=== PATIENT | male | born 1960 | race Caucasian/White ===

== ENCOUNTER 2019-03-10 10:23 | Observation (INO) ==
--- NOTE | 2019-03-10 10:59 | Emergency Department Note ---
Disposition Clinical Impression: Premature atrial complexes Disposition: Still a Patient General Adult HPI - General Chief complaint: ED Shortness of Breath/Dyspnea Stated complaint: AFIB again Time Seen by Provider: 03/10/19 10:38 Source: patient, family Limitations: no limitations Nursing Notes Reviewed: Yes Vital Signs Reviewed: Yes - History of Present Illness HPI Narrative: Attestation note: Patient was seen with the emergency medicine resident/nurse practitioner/physician mechanic's assistant/transitional resident/medical student: Dr. Trenton Tobar I have personally performed a face to face evaluation on this patient. I have reviewed and agree with history and physical examination patient management and disposition. Briefly the salient points of the case are as follows: 4-year-old male history of atrial fibrillation presents with "I am in A. fib again". On physical examination and with EKG patient apparently is in a sinus rhythm at 82 bpm with occasional atrial premature complexes no acute ischemic changes are noted ischemic changes when compared to prior EKG dated 02/13/2019. Patient was on a beta wong which helped him with the symptoms but his primary care physician Otis this medication for reasons that are unknown to the patient. Patient is afebrile with stable vital signs patient will undergo ED workup including chest x-ray and screening labs. Disposition pending Pain Scale: 0 - Related Data Home Medications Medication Instructions Recorded Confirmed Acetaminophen [Tylenol] 1,000 mg PO Q6HR PRN 02/07/19 02/07/19 Multivitamin [Daily Multiple 1 tab PO DAILY 02/07/19 02/07/19 Vitamin] Previous Rx's Medication Instructions Recorded Insulin DETEMIR [Levemir] 10 unit SQ HS #60 mls NS 02/13/19 Insulin Regular Human [Humulin R] 100 unit IJ ACHS #30 mls NS 02/13/19 Metoprolol [Lopressor] 125 mg PO BID #60 tablet 02/13/19 Miscellaneous Medical Supply 1 each MC DAILY #60 miscell 02/13/19 [Attachment Set] Simvastatin [Zocor] 80 mg PO DAILY 30 Days #30 tablet 02/13/19 NS Warfarin [Coumadin] 7.5 mg PO 1800 #30 tablet 02/13/19 dilTIAZem HCl [Diltiazem 24Hr Cd] 360 mg PO DAILY #30 cap.er.24h 02/13/19 Allergies Allergy/AdvReac Type Severity Reaction Status Date / Time No Known Allergies Allergy Verified 02/07/19 20:51 Past Medical History - Past Medical History Medical history: Reports: atrial fibrillation, hypertension Psychiatric history: Reports: no psych history - Social History Smoking Status: Never smoker Smokeless Tobacco Status: No Alcohol use: Reports: none Drug use: Reports: none Physical Exam - General Limitations: no limitations General appearance: alert, in no apparent distress Course Vital Signs Temperature 98.7 F 03/10/19 10:34 Pulse Rate 74 03/10/19 10:34 Respiratory Rate 18 03/10/19 10:34 Blood Pressure 161/82 03/10/19 10:34 O2 Sat by Pulse Oximetry 94 03/10/19 10:34 Temperature 98.8 F 03/10/19 10:45 Pulse Rate 77 03/10/19 10:45 Respiratory Rate 18 03/10/19 10:45 Blood Pressure 157/100 03/10/19 10:45 O2 Sat by Pulse Oximetry 96 03/10/19 10:45 Oxygen Delivery Oxygen Delivery Room Air
[2019-03-10 11:09] LABS: Basophils % 0.5 %; Eosinophils # 0.1 K/mcL (0.0-0.6); Eosinophils % 2.1 %; Hematocrit 45.2 % (37.5-50.1); Hemoglobin 15.3 g/dL (12.9-16.9); Immature Granulocytes % 0.3 % (0-4); Lymphocytes # 1.6 K/mcL (0.6-4.6); Lymphocytes % 25.6 %; Mean Corpuscular HGB Conc 33.8 g/dL (31.6-35.5); Mean Corpuscular Hemoglobin 29.7 pg (28.0-33.3); Mean Corpuscular Volume 87.8 fL (83.0-100.0); Mean Platelet Volume 10.3 fL (9.4-12.4); Monocytes # 0.5 K/mcL (0.0-1.3); Monocytes % 8.3 %; Neutrophils # 3.9 K/mcL (1.6-8.9); Platelet Count 189 K/mcL (140-400); Red Blood Count 5.15 M/mcL (4.19-5.50); Red Cell Distribution Width 12.8 % (11.5-14.5); Segmented Neutrophils % 63.2 %
[2019-03-10 11:24] LABS: Blood Urea Nitrogen 12 mg/dL (8-23); Calcium 9.3 mg/dL (8.6-10.3); Carbon Dioxide 26 mEq/L (23-29); Chloride 104 mEq/L (98-107); Glucose 196 mg/dL (70-105); Osmolality,Calculated 295 (280-300); Potassium 3.6 mEq/L (3.5-5.1); Sodium 140 mEq/L (136-145)
--- NOTE | 2019-03-10 11:24 | Emergency Department Note ---
Disposition Clinical Impression: Premature atrial complexes Pneumonia Qualifiers: Pneumonia type: due to unspecified organism Laterality: left Lung location: lower lobe of lung Qualified Code(s): J18.1 - Lobar pneumonia, unspecified organism CHF exacerbation Qualifiers: Heart failure type: unspecified Qualified Code(s): I50.9 - Heart failure, unspecified Disposition: Admitted As Inpatient Condition: Good General Adult HPI - General Chief complaint: ED Shortness of Breath/Dyspnea Stated complaint: AFIB again Time Seen by Provider: 03/10/19 10:38 Source: patient, family Limitations: no limitations Nursing Notes Reviewed: Yes Vital Signs Reviewed: Yes - History of Present Illness HPI Narrative: 4-year-old male presents emergency department with concern for taking that he was in atrial fibrillation again. Patient's history of atrial fibrillation. He states that he was having some palpitations and increased heart rate last night. He does not know how fast his heart was going. He does report some cough. Pain Scale: 0 - Related Data Home Medications Medication Instructions Recorded Confirmed Acetaminophen [Tylenol] 1,000 mg PO Q6HR PRN 02/07/19 02/07/19 Multivitamin [Daily Multiple 1 tab PO DAILY 02/07/19 02/07/19 Vitamin] Previous Rx's Medication Instructions Recorded Insulin DETEMIR [Levemir] 10 unit SQ HS #60 mls NS 02/13/19 Insulin Regular Human [Humulin R] 100 unit IJ ACHS #30 mls NS 02/13/19 Metoprolol [Lopressor] 125 mg PO BID #60 tablet 02/13/19 Miscellaneous Medical Supply 1 each MC DAILY #60 miscell 02/13/19 [Attachment Set] Simvastatin [Zocor] 80 mg PO DAILY 30 Days #30 tablet 02/13/19 NS Warfarin [Coumadin] 7.5 mg PO 1800 #30 tablet 02/13/19 dilTIAZem HCl [Diltiazem 24Hr Cd] 360 mg PO DAILY #30 cap.er.24h 02/13/19 Allergies Allergy/AdvReac Type Severity Reaction Status Date / Time No Known Allergies Allergy Verified 02/07/19 20:51 All systems ED: reviewed and negative except as stated. Review of Systems: As Per HPI Constitutional: Denies: fever Cardiovascular: Reports: palpitations. Denies: chest pain Respiratory: Reports: cough, dyspnea Gastrointestinal: Denies: abdominal pain, nausea, vomiting Musculoskeletal: Denies: back pain Past Medical History - Past Medical History Attestation: Yes The following information was validated with the patient. Medical history: Reports: atrial fibrillation, hypertension Psychiatric history: Reports: no psych history - Social History Smoking Status: Never smoker Smokeless Tobacco Status: No Alcohol use: Reports: none Drug use: Reports: none Physical Exam - General Limitations: no limitations General appearance: alert, in no apparent distress - Head Head exam: normocephalic - Eye Eye exam: Present: EOMI - ENT ENT exam: mucous membranes moist - Neck Neck exam: Present: trachea midline - Chest Chest inspection: Present: normal inspection, symmetric chest wall rise - Respiratory Respiratory exam: Present: normal lung sounds bilaterally. Absent: respiratory distress - Cardiovascular Cardiovascular exam: Present: regular rate, normal rhythm, normal heart sounds - Abdominal Exam Abdominal exam: Present: soft, Non-Tender, distention. Absent: guarding, rebound, rigidity - Extremities Exam Extremities exam: Present: normal capillary refill - Neurological Exam Neurological exam: Present: alert, oriented X3 - Psychiatric Psychiatric exam: Present: normal affect, normal mood - Skin Skin exam: Present: warm, dry, intact, normal color Course Vital Signs Temperature 98.7 F 03/10/19 10:34 Pulse Rate 74 03/10/19 10:34 Respiratory Rate 18 03/10/19 10:34 Blood Pressure 161/82 03/10/19 10:34 O2 Sat by Pulse Oximetry 94 03/10/19 10:34 Temperature 98.8 F 03/10/19 10:45 Pulse Rate 74 03/10/19 11:36 Respiratory Rate 18 03/10/19 11:36 Blood Pressure 162/95 03/10/19 11:36 O2 Sat by Pulse Oximetry 97 03/10/19 11:36 Oxygen Delivery Oxygen Delivery Room Air Medical Decision Making - [facility] Narrative Medical decision making narrative: 58-year-old male presents emergency department with concern for shortness of breath, cough, palpitations. History of atrial fibrillation, but not currently in atrial ablation here in the emergency department. Sinus rhythm with occasional PACs. Initial troponin was negative. Chest x-ray revealed left lower lobe pneumonia versus pleural effusion. Patient with no white count, but is reporting some cough. He is afebrile here. We will treat patient as if he has pneumonia. Given him Rocephin and azithromycin. Also, given him a dose of Lasix. His BNP has become more elevated since last visit and he is having some increasing peripheral edema with shortness of breath on exertion as well as shortness of breath while lying flat. We will admit patient to hospitalist. Patient agreed with plan. Hospitalist Dr. Harrington agree to accept admission to address his pneumonia as well as possible worsening heart failure. - Lab Data Result diagrams: 03/10/19 10:52 03/10/19 10:52 Lab Results 03/10/19 03/10/19 03/10/19 Range/Units 10:52 10:52 10:52 WBC 6.1 (4.3-11.1) K/mcL RBC 5.15 (4.19-5.50) M/mcL Hgb 15.3 (12.9-16.9) g/dL Hct 45.2 (37.5-50.1) % MCV 87.8 (83.0-100.0) fL MCH 29.7 (28.0-33.3) pg MCHC 33.8 (31.6-35.5) g/dL RDW 12.8 (11.5-14.5) % Plt Count 189 (140-400) K/mcL MPV 10.3 (9.4-12.4) fL Immature Gran % 0.3 (0-4) % Seg Neutrophils % 63.2 % Lymphocytes % 25.6 % Monocytes % 8.3 % Eosinophils % 2.1 % Basophils % 0.5 % Neutrophils # 3.9 (1.6-8.9) K/mcL Lymphocytes # 1.6 (0.6-4.6) K/mcL Monocytes # 0.5 (0.0-1.3) K/mcL Eosinophils # 0.1 (0.0-0.6) K/mcL Basophils # 0.0 (0.0-0.2) K/mcL Sodium 140 (136-145) mEq/L Potassium 3.6 (3.5-5.1) mEq/L Chloride 104 (98-107) mEq/L Carbon Dioxide 26 (23-29) mEq/L BUN 12 (8-23) mg/dL Creatinine 0.95 (0.70-1.30) mg/dL Est GFR ( Amer) > 60 (> 60) Est GFR (Non-Af Amer) > 60 (> 60) BUN/Creatinine Ratio 13 (6-26) Glucose 196 H (70-105) mg/dL Calculated Osmolality 295 (280-300) Calcium 9.3 (8.6-10.3) mg/dL Troponin I < 0.03 (< 0.04) ng/mL B-Natriuretic Peptide 128 H (Less than 100) pg/mL - EKG Data EKG #1 EKG attestation: Yes I reviewed and interpreted this EKG. EKG results narrative: 10:44 Heart rate 82 bpm, DE interval 167 ms, QRS duration 104 ms, QT 366 ms, normal axis. Sinus rhythm with a ventricular rate of 80 bpm. There are occasional PACs here. Nonspecific ST changes in the septal and anterior leads from ECG obtained on February 13, 2019.
[2019-03-10 11:25] LABS: Troponin I < 0.03 ng/mL (< 0.04)
[2019-03-10 12:13] LABS: BUN/Creatinine Ratio 13 (6-26); eGFR For Non-African Americans > 60 (> 60)
[2019-03-10] MEDS ORDERED: Furosemide 40 MG/4 ML VIAL IVP ONE (12:16)
[2019-03-10] MEDS ORDERED: Azithromycin 500 MG in D5% in Water 250 ML IVPB ONE (12:17)
[2019-03-10] MEDS ORDERED: cefTRIAXone 1,000 MG in Water for inj. (sterile) 20 ML 10 ML IVP ONE (12:17)
[2019-03-10 14:29] LABS: INR 2.5; Prothrombin Time 27.8 Seconds (9.4-12.1)
[2019-03-10] MEDS ORDERED: Naloxone 0.4 MG/ML INJ IVP PRN (15:03)
--- NOTE | 2019-03-10 15:44 | Internal Med History&Physical ---
Date of Encounter: 03/10/19 Time of Encounter: 16:00 Internal Medicine - H&P: HPI Chief complaint: Shortness of breath Admitted From: Emergency Dept History of present illness: Mr. Mcintyre is a 58 year old male patient with a history of atrial fibrillation on anticoagulation with Coumadin presented to the ER with complaints of shortness of breath. Symptoms began earlier this morning. Patient noted that he was significantly dyspneic even with minimal exertion. He does have occasional lower extremity swelling and describes episodes of orthopnea. He is also been having cough with sputum production. Denies any fevers or chills. No nausea or vomiting. He was hospitalized last month when he was diagnosed with A. fib and was placed on metoprolol. He was evaluated by his strike off machine operator as outpatient 2 days back and was taken off metoprolol. He has been on Cardizem and was also placed on Lasix at his clinic appointment. Patient reports that he had a fluttery feeling in the chest last night. Past Med Surg Social Fam HX - Past Medical History Attestation: Yes The following information was validated with the patient. Source: patient Medical history: atrial fibrillation, hypertension Psychiatric history: no psych history - Past Surgical History Additional surgical history: Scope to knee, total right knee, 2 revisions to right knee - Social History Smoking Status: Never smoker Smokeless Tobacco Status: No Alcohol use: none Drug use: none - Family History Mother Living Status: Hx Family Cardiac Disorders: Yes (Kidney failure) Father Living Status: Still Living Hx Family Cardiac Disorders: Yes (HTN, blood clots, HLD, DVT) Hx Family Endocrine Disorder: Yes (DM) Brother Living Status: Hx Family Cardiac Disorders: Yes (CVA, blood clots, DVT) Internal Medicine - H&P: Meds Diltiazem CD (24hr) [Cardizem CD] 360 mg PO DAILY 03/10/19 [History] Furosemide [Lasix] 20 mg PO DAILY 03/10/19 [History] Insulin Glargine [Lantus] 10 unit SQ HS 03/10/19 [History] Insulin Regular Human [Humulin R] 0 unit SQ QIDAC 03/10/19 [History] Lisinopril [Zestril] 5 mg PO DAILY 03/10/19 [History] Metoclopramide [Reglan] 10 mg PO BID 03/10/19 [History] Metoprolol Tartrate 100 mg PO BID 03/10/19 [History] Metoprolol [Lopressor] 25 mg PO BID 03/10/19 [History] Rosuvastatin Calcium 20 mg PO HS 03/10/19 [History] Warfarin Sodium 3.75 mg PO SUTUTHFR 03/10/19 [History] Warfarin Sodium 7.5 mg PO MOWESA 03/10/19 [History] Allergy/AdvReac Type Severity Reaction Status Date / Time No Known Allergies Allergy Verified 02/07/19 20:51 All Systems PM: A 10-system review of systems was performed and is negative for pertinent findings except as documented above in the HPI. - Constitutional Constitutional: no chills, no fever(s), no night sweats - EENT Eyes: no change in vision, no discharge, no pain, no photophobia Ears: no ear discharge, no ear pain, no tinnitus Nose, mouth and throat: no dysphagia, no nasal discharge, no neck pain, no sore throat - Cardiovascular Cardiovascular ROS IM: dyspnea on exertion, palpitations, no chest pain, no diap horesis, no dyspnea, no lightheadedness, no syncope - Respiratory Respiratory: cough, dyspnea, excessive phlegm production, no wheezing - Gastrointestinal Gastrointestinal: no abdominal pain, no diarrhea, no hematemesis, no hematochezia, no melena, no nausea, no vomiting - Musculoskeletal Musculoskeletal ROS IM: no numbness, no tingling - Integumentary Integumentary IM: no rash, no unusual bruising - Neurological Neurological ROS: no confusion, no convulsions, no focal weakness, no numbness, no tingling, no tremor(s) - Hematologic/Lymphatic Hematologic/Lymphatic: no easy bruising - Constitutional Vitals: Temp Pulse Resp BP Pulse Ox 98.5 F 73 16 143/92 94 03/10/19 14:23 03/10/19 14:23 03/10/19 14:23 03/10/19 14:23 03/10/19 14:23 General appearance: Present: cooperative, A&O X 3, pleasant, answers questions appropriately Exam: General: Patient is alert, no acute distress, oriented x 3 Head: atraumatic, normocephalic, ENT: Mucous membranes moist Eye: normal appearance, PERRL, no scleral icterus, no conjunctival injection Neck: normal inspection, trachea midline, full ROM, no carotid bruits Chest: normal inspection, symmetric chest rise Respiratory: Normal breath sounds bilaterally. Cardiovascular: Irregularly irregular rhythm s1 and s2 normal No clicks, rubs, gallops, or murmurs. No pedal edema Abdomen: Abdomen is soft, nontender. Bowel sounds are present Musculoskeletal: Spontaneously moving all extremities Skin: warm, dry, intact. Neuro: Alert oriented x 3 normal cranial nerves, no focal deficits Psych: Patient's affect is normal Internal Med - H&P Results - Labs CBC & Chem 7: 03/10/19 10:52 03/10/19 10:52 Labs: Short CBC 03/10/19 Range/Units 10:52 WBC 6.1 (4.3-11.1) K/mcL Hgb 15.3 (12.9-16.9) g/dL Hct 45.2 (37.5-50.1) % Plt Count 189 (140-400) K/mcL Neutrophils # 3.9 (1.6-8.9) K/mcL BMP 03/10/19 10:52 Sodium 140 Potassium 3.6 Chloride 104 Carbon Dioxide 26 BUN 12 Creatinine 0.95 Glucose 196 H Calcium 9.3 Cardiac Enzymes 03/10/19 Range/Units 10:52 Troponin I < 0.03 (< 0.04) ng/mL - Impressions ITS Impressions Chest X-Ray 03/10/19 10:47 IMPRESSION: 1. New left basilar consolidation and left pleural effusion as well as subsegmental atelectasis lingula left upper lobe. Pneumonia is a consideration. 2. Findings of mild pulmonary venous hypertension which may simply be related to physiologic redistribution. No overt congestive heart failure change evident. 3. Cardiomegaly. D/ / James Plummer / James Plummer Interpreting Provider: James Plummer - Assessment and Plan (1) Pneumonia Current Visit: Yes Status: Suspected Assessment and plan: Chest x-ray concerning for pneumonia. We will treat with IV antibiotics. Monitor vital signs closely. Check MRSA screen. Follow blood cultures. We will also send sputum for culture. Check pneumococcal and Legionella antigens. Moderate risk for complications. Qualifiers: Pneumonia type: due to Pneumococcus Laterality: left Lung location: lower lobe of lung Qualified Code(s): J13 - Pneumonia due to Streptococcus pneumoniae (2) Paroxysmal A-fib Current Visit: Yes Status: Acute Assessment and plan: Paroxysmal atrial fibrillation. EKG shows sinus rhythm but on my examination he had irregularly irregular rhythm. Continue Cardizem. On Coumadin for anticoagulation. (3) Hypertension Current Visit: Yes Status: Chronic Qualifiers: Hypertension type: essential hypertension Qualified Code(s): I10 - Essential (primary) hypertension (4) Congestive heart failure Current Visit: Yes Status: Acute Assessment and plan: Patient reporting symptoms of exertional dyspnea and pedal edema and orthopnea. BNP slightly elevated at 128. Continue Lasix. Echocardiogram done last month showed EF of 50%. Monitor input and output. Qualifiers: Heart failure type: diastolic Heart failure chronicity: acute on chronic Qualified Code(s): I50.33 - Acute on chronic diastolic (congestive) heart failure (5) Diabetes mellitus, type 2 Current Visit: Yes Status: Chronic Assessment and plan: Monitor blood sugars. Sliding scale insulin. A1c was 9.2% during last hospitalization here 1 month back. Qualifiers: Diabetes mellitus superintendent container terminal insulin use: without superintendent container terminal use Diabetes mellitus complication status: with hyperglycemia Qualified Code(s): E11.65 - Type 2 diabetes mellitus with hyperglycemia - Time Spent With Patient Total time spent is greater than 50% in coordination of care (as documented) at patient's floor/unit and/or counseling patient:
[2019-03-10] MEDS ORDERED: D5% in Water 1,000 ML IVC PRN (16:26)
[2019-03-10] MEDS ORDERED: Dextrose Gel 15 GM/37.5 ML TUBE PO PRN ×2 (16:26)
[2019-03-10] MEDS ORDERED: *HR* Dextrose 50 % in Water (Syg) 50 ML SYRINGE IVP PRN (16:26)
[2019-03-10] MEDS ORDERED: Warfarin perPT PO PRN (18:00)
[2019-03-10] MEDS: Insulin LISPRO 300 UNITS/3 ML VIAL SQ SCH (18:18)
[2019-03-10] MEDS ORDERED: *HR* Warfarin 7.5 MG TABLET PO ONE (18:30)
[2019-03-10] MEDS ORDERED: Insulin LISPRO 300 UNITS/3 ML VIAL SQ SCH (21:00)
[2019-03-11 03:49] LABS: Basophils # 0.1 K/mcL (0.0-0.2); Basophils % 0.7 %; Eosinophils # 0.2 K/mcL (0.0-0.6); Eosinophils % 3.1 %; Hematocrit 44.8 % (37.5-50.1); Hemoglobin 15.1 g/dL (12.9-16.9); Immature Granulocytes % 0.3 % (0-4); Lymphocytes # 2.1 K/mcL (0.6-4.6); Lymphocytes % 30.7 %; Mean Corpuscular HGB Conc 33.7 g/dL (31.6-35.5); Mean Corpuscular Hemoglobin 29.5 pg (28.0-33.3); Mean Corpuscular Volume 87.5 fL (83.0-100.0); Mean Platelet Volume 10.5 fL (9.4-12.4); Monocytes # 0.6 K/mcL (0.0-1.3); Monocytes % 8.7 %; Neutrophils # 3.8 K/mcL (1.6-8.9); Platelet Count 179 K/mcL (140-400); Red Blood Count 5.12 M/mcL (4.19-5.50); Segmented Neutrophils % 56.5 %
[2019-03-11 03:58] LABS: INR 2.4; Prothrombin Time 27.4 Seconds (9.4-12.1)
[2019-03-11 04:10] LABS: BUN/Creatinine Ratio 12 (6-26); Blood Urea Nitrogen 11 mg/dL (8-23); Carbon Dioxide 26 mEq/L (23-29); Chloride 105 mEq/L (98-107); Glucose 167 mg/dL (70-105); Osmolality,Calculated 293 (280-300); Potassium 3.1 mEq/L (3.5-5.1); Sodium 140 mEq/L (136-145); eGFR For Non-African Americans > 60 (> 60)
[2019-03-11 08:00] VITALS: BP 148/83
[2019-03-11] MEDS ORDERED: Furosemide 40 MG/4 ML VIAL IVP SCH (09:00)
[2019-03-11] MEDS ORDERED: Azithromycin 500 MG in D5% in Water 250 ML IVPB SCH (09:00)
[2019-03-11] MEDS ORDERED: cefTRIAXone 1,000 MG in Water for inj. (sterile) 20 ML 10 ML IVP SCH (09:00)
[2019-03-11] MEDS ORDERED: Diltiazem CD (24hr) 180 MG CAPSULE PO SCH (09:00)
[2019-03-11] MEDS: Insulin LISPRO 300 UNITS/3 ML VIAL SQ SCH (09:35)
--- NOTE | 2019-03-11 10:32 | Discharge Summary ---
- NOTES TO OUTPATIENT PROVIDER Notes to Outpatient Provider: Patient with a history of atrial fibrillation on anticoagulation, hypertension who presented to the ER here with complaints of shortness of breath. He was diagnosed with pneumonia and acute congestive heart failure. Was treated with IV antibiotics and also received IV Lasix. His symptoms have significantly improved much quicker than expected today and he is feeling a lot better. He is clinically stable to be discharged home on oral antibiotics and will continue to take Lasix at home. He is on Coumadin for anticoagulation and his INR is therapeutic. He is not requiring O2 supplementation. He will follow up with cardiology after discharge for further management of his atrial fibrillation and congestive heart failure. Orders not resulted at time of discharge: Pending orders 03/10/19 16:28 Culture,Sputum with Gram Stain [RM] Routine 03/12/19 04:00 PT/INR [Prothrombin Time INR] [COAG] AM 0400 03/13/19 04:00 PT/INR [Prothrombin Time INR] [COAG] AM 0400 03/14/19 04:00 PT/INR [Prothrombin Time INR] [COAG] AM 0400 Date of Encounter: 03/11/19 Time of Encounter: 10:29 - Discharge Diagnosis (1) Pneumonia Priority: Primary Status: Acute Qualifiers: Pneumonia type: due to unspecified organism Laterality: left Lung locatio n: lower lobe of lung Qualified Code(s): J18.1 - Lobar pneumonia, unspecified organism (2) Paroxysmal A-fib Priority: Secondary Status: Acute (3) Hypertension Priority: Secondary Status: Chronic Qualifiers: Hypertension type: essential hypertension Qualified Code(s): I10 - Essential (primary) hypertension (4) Congestive heart failure Priority: Secondary Status: Acute Qualifiers: Heart failure type: diastolic Heart failure chronicity: acute on chronic Qualified Code(s): I50.33 - Acute on chronic diastolic (congestive) heart failure (5) Diabetes mellitus, type 2 Priority: Secondary Status: Chronic Qualifiers: Diabetes mellitus long term care social worker insulin use: without nursing home use Diabetes me llitus complication status: with hyperglycemia Qualified Code(s): E11.65 - Type 2 diabetes mellitus with hyperglycemia Hospital course: Mr. Mcintyre is a 58 year old male Patient with a history of atrial fibrillation on anticoagulation, hypertension who presented to the ER here with complaints of shortness of breath. He was diagnosed with pneumonia and acute congestive heart failure. Was treated with IV antibiotics and also received IV Lasix. His symptoms have significantly improved much quicker than expected today and he is feeling a lot better. He is clinically stable to be discharged home on oral antibiotics and will continue to take Lasix at home. He is on Coumadin for anticoagulation and his INR is therapeutic. He is not requiring O2 supplementation. He will follow up with cardiology after discharge for further management of his atrial fibrillation and congestive heart failure. Discharge discussed with: patient - Time Spent with Patient Total time spent providing and/or coordinating discharge services: Time spent: Less than 30 minutes (25 min) - Discharge Medications Prescriptions: New Furosemide [Lasix] 40 mg PO DAILY #30 tablet Potassium Chloride 20 meq PO DAILY #30 tab.er.prt levoFLOXacin [Levaquin] 750 mg PO DAILY #5 tablet Continue Metoclopramide [Reglan] 10 mg PO BID Lisinopril [Zestril] 5 mg PO DAILY Rosuvastatin Calcium 20 mg PO HS Insulin Regular Human [Humulin R] 0 unit SQ QIDAC Insulin Glargine [Lantus] 10 unit SQ HS Diltiazem CD (24hr) [Cardizem CD] 360 mg PO DAILY Warfarin Sodium 7.5 mg PO MOWESA Warfarin Sodium 3.75 mg PO SUTUTHFR Discontinued Metoprolol [Lopressor] 25 mg PO BID Metoprolol Tartrate 100 mg PO BID Furosemide [Lasix] 20 mg PO DAILY Home Medications: Diltiazem CD (24hr) [Cardizem CD] 360 mg PO DAILY 03/10/19 [History] Insulin Glargine [Lantus] 10 unit SQ HS 03/10/19 [History] Insulin Regular Human [Humulin R] 0 unit SQ QIDAC 03/10/19 [History] Lisinopril [Zestril] 5 mg PO DAILY 03/10/19 [History] Metoclopramide [Reglan] 10 mg PO BID 03/10/19 [History] Rosuvastatin Calcium 20 mg PO HS 03/10/19 [History] Warfarin Sodium 3.75 mg PO SUTUTHFR 03/10/19 [History] Warfarin Sodium 7.5 mg PO MOWESA 03/10/19 [History] Furosemide [Lasix] 40 mg PO DAILY #30 tablet 04/20/19 [Rx] Potassium Chloride 20 meq PO DAILY #30 tab.er.prt 03/11/19 [Rx] levoFLOXacin [Levaquin] 750 mg PO DAILY #5 tablet 03/11/19 [Rx] Allergies/Adverse Reactions: Allergy/AdvReac Type Severity Reaction Status Date / Time No Known Allergies Allergy Verified 02/07/19 20:51 Date of admission: 03/10/19 13:05 Primary care physician: Sumit Pradhan Jr, MD Discharging clinician: Dahlia Sal Anticipated date of discharge: 03/11/19 - Constitutional Vitals: Temp Pulse Resp BP Pulse Ox 98 F 74 17 148/83 95 03/11/19 07:58 03/11/19 07:58 03/11/19 07:58 03/11/19 07:58 03/11/19 07:58 General appearance: Present: cooperative, A&O X 3, pleasant, answers questions appropriately Exam: General: Patient is alert, no acute distress, morbidly obese oriented x 3 ENT: Mucous membranes moist Respiratory: Improved air entry bilaterally. Cardiovascular: Regular rate and rhythm. s1 and s2 normal No clicks, rubs, gallops, or murmurs. No pedal edema Abdomen: Abdomen is soft, nontender. Bowel sounds are present Musculoskeletal: Spontaneously moving all extremities Skin: warm, dry, intact. Neuro: Alert oriented x 3 normal cranial nerves, no focal deficits - Patient Status Disposition: Home, Self-Care Condition: Good Functional capacity at discharge: independent ambulation Overall status at discharge: patient is progressing back to baseline - Ambulatory Orders Ambulatory Orders: Basic Metabolic Panel [CHEM] Time Frame: 3 Days, Facility: [facility], Location: Lab - Discharge Instructions Instructions: Heart Failure (DC), Atrial Fibrillation (DC), Pneumonia (DC) Follow Up With: Sumit Pradhan Jr, MD [Primary Care Provider] - (Has been requested) Corey Botello MD [Non-Partnered Physician] - (in1 -2 weeks) Additional Instructions: Change Coumadin dosage to 5 mg daily while you are taking Levaquin. Please recheck INR in 2 days and adjust Coumadin dose accordingly. - Diet and Activity Activity: increase activity as tolerated Diet: advance to your usual diet, diabetic diet, low fat, low cholesterol, low salt diet
--- NOTE | 2019-03-12 14:33 | Electrocardiograph Report ---
[email or web address] Test Date: 2019-03-10 Pat Name: Rhys Mcintyre Department: EXAM21 Room: 3B23 Gender: M Crisis [employer] Therapist: : [id number] Requested By: Trenton Tobar Order Number: [id number] Reading MD: Jose Sagastume Measurements Intervals [place] Rate: 82 P: 44 LA: 167 QRS: 66 QRSD: 104 T: 193 QT: 366 QTc: 428 Interpretive Statements Sinus rhythm Atrial premature complexes Nonspecific T abnormalities, diffuse leads Electronically Signed On 03-12-2019 14:32:04 EDT by Jose Sagastume
== END 2019-03-11 11:49 | disposition home or self-care (01) ==
LOC: EMEROOARM 10:23 → 3BNU 10:23
PROVIDERS: ADMIT Internal Medicine; ATTEND Internal Medicine